=== PATIENT | female | born 1985 | race Caucasian/White ===

== ENCOUNTER → 2016-11-01 | Outpatient (CLI) | payer BC ==
--- NOTE | 2016-11-01 15:55 | KCIC ---
PROCEDURE Pelvic and transvaginal ultrasound HISTORY Pelvic pain, dysmenorrhea COMPARISON None FINDINGS Multiple transabdominal sonographic images of the pelvis are submitted. Pelvic structures are poorly visualized on this portion of exam. Transvaginal ultrasound: Multiple transvaginal sonographic images of the pelvis are submitted. No free fluid is demonstrated. Endometrium measured 0.7 cm. Right ovary measured 3.2 x 2.1 x 2.9 centimeters, normal low resistance vascularity. There are follicles of the right ovary. There is also a hypoechoic lesion of the right ovary up to 2.1 x 1.4 x 1.4 centimeters with some internal echoes, somewhat angular margins present. Left ovary measured 3.4 x 3.2 x 3.5 centimeters. There is septated cyst of the left ovary up to 2.6 x 1.4 x 2.3 centimeters. There is focus of relative different echogenicity of the posterior uterus in the myometrium up to 2.5 x 2.4 x 2.4 centimeters. IMPRESSION 1. There is questionable fibroid of the posterior uterus in the myometrium. 2. There is a complex cyst of the right ovary, also septated cyst of the left ovary. No free fluid is demonstrated. Electronically signed by: Curly Hoffman MD (Nov 01, 2016 15:54:12)
== END | disposition home or self-care (01) ==
LOC: KCIC US 14:42
PROVIDERS: ATTEND Obstetrics & Gynecology
DX: R10.2 Pelvic and perineal pain (principal); N94.6 Dysmenorrhea, unspecified; N83.292 Other ovarian cyst, left side; N83.291 Other ovarian cyst, right side
CPT/HCPCS: 76830; 76856

== ENCOUNTER → 2020-03-25 | Outpatient (CLI) | payer BC ==
[~2020-03-25] MED LIST: GADOTERATE 5 MMOL/10ML VIAL. IVP ONE
--- NOTE | 2020-03-27 19:59 | KCIC ---
EXAM: MRI Pelvis without IV contrast INDICATION: Reason: COMPLEX OVARIAN CYSTS / Spl. Instructions: Unexplained elevated tumor markers recently. All over body pain. / History: Eval for ovarian cysts. Stage 4 endometriosis. 10cc Dotarem. The scanned in handwritten order for the examination also includes an additional request to "rule out cancer". TECHNIQUE: Multiplanar, multisequence MRI of the pelvis without IV contrast. Specifically, at 1.5 Marina, small [id number] axial T2, T1 and fat sat postcontrast T1, coronal STIR, T1 and fat sat T1 postcontrast, sagittal STIR and sagittal T2 weighted sequences were acquired. 10 mL of Dotarem IV were used for the postcontrast sequences. COMPARISON: Pelvic ultrasound of 08/19/2018, abdomen and pelvis CT with IV contrast of 03/19/2020 and 04/04/2018. FINDINGS: The uterus is 9.2 cm long, 4.3 cm thick, and 5.7 cm wide. There is a T2 hyperintense defect in the junctional zone of the low anterior uterine segment compatible with an old scar that may contain a tiny implant of endometrial tissue (sagittal image 12 of series 2, coronal images 12 and 13 of series 3 and 10 respectively). The cervix is normal. Endometrial stripe is 7 mm. The coronal STIR sequence shows a blurring of the dorsal junctional zone and coronal T1 precontrast series without fat saturation shows multiple T1 hyperintense foci in scattered throughout the uterine myometrium in a pattern suggestive of adenomyosis diffusely, although this is slightly degraded by pulsation artifact from the iliac arteries. There is a small amount of pelvic free fluid. No hydrosalpinx. There are complex cystic changes in the bilateral ovaries as described in detail below: LEFT OVARY: Left ovary contains a dominant a 4.2 cm wide by 3.9 cm thick by 3.6 cm tall dominant cystic structure showing no T2 shading, low signal on T1, and no enhancement, all features consistent with a benign, simple ovarian cyst. There is enhancement surrounding this dominant cyst as expected of normal ovarian tissue but there is more homogenous enhancement in a 1.1 cm oval circumscribed anterior left ovarian mass lying just deep to the left hypogastric vessels (annotated with an arrow on the collazo images). This nodule was centrally hypodense on the most recent comparison pelvis CT (image 108 of series 5 on 03/19/2020) and is hypointense on the T1-weighted sequence (image 11 of series 7), as might be expected of simple fluid, but is intermediate in signal intensity on the T2-weighted sequence (image 11 of series 8) with possible T2 shading, and appears to enhance diffusely (image 10 of series 9) postcontrast. If it were a mural nodule within an endometrioma, it would be suspicious. However, given its relatively small size, this apparent enhancement could alternatively represent signal averaging with the surrounding ovarian tissue in a normal follicle or atypical endometrioma. It merits attention on follow-up, to include fat saturated precontrast T1-weighted sequences. It is surrounded by adjacent foci of T1 hyperintensity, consistent with small foci of endometriosis (images 12 and 13 of series 7). It is not a normal follicle if enhancement is confirmed and would more likely represent an endometrioma. RIGHT OVARY: The right ovary is a complex, multiloculated cystic mass measuring 7.8 x 3.1 x 4.2 cm (image 8 of axial series 8 and image 23 of sagittal series 5). There is an anterior component abutting surgical sutures along bowel loops in the right lower quadrant abdomen adjacent to the right external iliac artery that shows T1 and T2 hypointensity and diffuse enhancement, likely reflecting enhancing fibrosis (image 108 of series [address] of 03/19/2020, image 8 of series 8, image 9 of series 7 and image 9 and series 9). The middle and posterior components of this mass are closely apposed to the right pelvic sidewall and show diffuse enhancement with the exception of a unilocular 3 cm simple ovarian cyst that is partially surrounded along its anterolateral margin by multiple small endometriomas (best illustrated on image 8 of series 7). Since this enhancement asymmetrically involves the right-sided pelvic sidewall (best illustrated on images 10 and 11 on series 7, 8, and 9) to a depth greater than 5 mm, deep infiltrating endometriosis is suspected at this site. The CT correlate to these findings is best illustrated on image 107 of series 5 on 03/19/2020 comparison study. IMPRESSION: 1. Right greater than left bilateral pelvic endometriosis with a small probable cystic endometrioma on the left ovary, and more extensive cystic endometriomas in the right ovary, associated also with findings suspicious for deep infiltrating endometriosis involving the right pelvic sidewall and likely an adjacent bowel loop in the right lower quadrant as described. There is no evidence currently for malignancy. 2. Follow-up in 4-6 weeks could be considered and with any follow-up examination, the inclusion of fat-suppressed precontrast T1-weighted imaging (to allow the generation of subtraction images), and the inclusion of diffusion-weighted imaging would be helpful. Electronically signed by: Quinn Deng MD (03/27/2020 7:56 PM) [facility]
== END | disposition home or self-care (01) ==
LOC: KCIC MRI 10:43
PROVIDERS: ATTEND Family Medicine
DX: N83.9 Noninflammatory disorder of ovary, fallopian tube and broad ligament, unspecified (principal); N80.3 Endometriosis of pelvic peritoneum; N83.292 Other ovarian cyst, left side; N83.291 Other ovarian cyst, right side
CPT/HCPCS: 72197; 82565; A9575